=== PATIENT | male | born 1980 | race Caucasian/White ===

== ENCOUNTER 2023-09-25 22:57 | Emergency (ER) | payer OTHER, SELFPAY ==
[2023-09-25 22:58] VITALS: BP 158/86
[2023-09-25 23:25] VITALS: BMI 21.9
[2023-09-25 23:26] LABS: % Eosinophils 4.7 % (0-6); % Immature Granulocytes 0.4 % (0-0.5); % Lymphocytes 37.8 % (20.5-51.1); % Monocytes 6.8 % (1.7-9.3); % Neutrophils 49.3 % (42.2-75.2); Absolute Basophils 0.1 10^3/uL (0-0.2); Absolute Eosinophils 0.3 10^3/uL (0-0.7); Absolute Lymphocytes 2.7 10^3/uL (1.2-3.4); Absolute Monocytes 0.5 10^3/uL (0.1-0.6); Absolute Neutrophils 3.5 10^3/uL (1.4-6.5); Hematocrit 41.3 % (39.0-52.0); Hemoglobin 14.5 g/dL (13.0-18.0); Mean Corp Hgb Conc. 35.1 g/dL (33.0-37.0); Mean Corpuscular Hgb 30.1 pg (27.0-31.0); Mean Corpuscular Volume 85.7 fL (80.0-94.0); Mean Platelet Volume 8.7 fL (7.4-10.4); Nucleated Red Blood Cells % 0 % (-); Platelet Count 300 10^3/uL (130-400); Red Blood Cell Count 4.82 10^6/uL (4.70-6.10); Red Cell Dist. Width 12.4 % (11.5-14.5)
[2023-09-25 23:27] VITALS: BP 124/72
[2023-09-25 23:30] VITALS: BP 130/84
[2023-09-25 23:37] LABS: Urine Albumin Negative (Neg - Trace); Urine Bilirubin Negative (Negative); Urine Character Clear (Clear); Urine Color Yellow; Urine Glucose Negative (Negative); Urine Ketone Negative (Negative); Urine Leukocyte Negative (Negative); Urine Nitrite Negative (Negative); Urine Occult Blood 2+ (Negative); Urine Specific Gravity 1.005 (<1.030); Urine Urobilinogen Negative (Neg - 1+)
[2023-09-25] MEDS: NSS 1000 IV (23:38)
[2023-09-25] MEDS: DILAUDID 0.5 MG IV (23:38)
[2023-09-25 23:40] LABS: ALT (SGPT) 23 U/L (0-50); AST (SGOT) 29 U/L (17-59); Albumin 5.1 g/dl (3.5-5.0); Alkaline Phosphatase 121 U/L (38-126); Blood Urea Nitrogen 13 mg/dl (9-20); Carbon Dioxide 26 mmol/L (22-30); Chloride 102 mmol/L (98-107); Estimated Creatinine Clearance 100 ml/min; Glucose 133 mg/dl (70-99); Potassium 3.9 mmol/L (3.5-5.1); Sodium 136 mmol/L (135-145); Total Bilirubin 0.7 mg/dl (0.2-1.3); Total Protein 8.3 g/dl (6.3-8.2); eGFR > 60.00
[2023-09-25 23:41] VITALS: BP 130/84
[2023-09-26] VITALS (7 sets, daily range): BP systolic 106–137; BP diastolic 59–90
[2023-09-26] MEDS: DILAUDID 0.5 MG IV (00:19)
[2023-09-26 00:38] LABS: Urine Bacteria Few (Negative); Urine Red Blood Cell 80-90 /HPF (0-2); Urine White Cell 0-2 /HPF (0-5)
--- NOTE | 2023-09-26 00:42 | ED.GENMED ---
History of Present Illness
<XAVIER Petit - Last Filed: 09/26/23 06:08>
General
Chief Complaint: Abdominal Pain
Source: patient
Exam Limitations: none
Time Seen by Provider: 09/26/23 00:24
Travel History
Have you had any contact with someone who has COVID-19?: No
Do you have any symptoms of coronavirus? Fever > 100 degrees, chills, cough, shortness of breath, sore throat, loss of taste or smell, muscle aches, or headache?: No
History of Present Illness
History of Present Illness:
This is a 43 yo male with PMH appendectomy presenting for abdominal pain x 2 hours. He states he was sitting down this evening and noticed abrupt 9/10 R sided abdominal pain radiating to his R flank, as well as his R testicle.
He denies history of similar symptoms and denies history of gallstones and kidney stones.
He denies nausea, vomiting, fever, chills, dysuria.
Review of Systems
<XAVIER Petit - Last Filed: 09/26/23 06:08>
Review of Systems
Allergies reviewed?: Yes
Constitutional: Reports no symptoms
EENT: Reports no symptoms
Respiratory: Reports no symptoms
Cardiac: Reports no symptoms
ABD/GI: Reports abdominal pain
: Reports flank pain
Musculoskeletal: Reports no symptoms
Skin: Reports no symptoms
Neurological: Reports no symptoms
Phy Exam
<XAVIER Petit - Last Filed: 09/26/23 06:08>
General Physical Exam
General Presentation: moderate distress
General age: appears stated age
General Skin: warm and dry
General Habitus: normal
General Mental: alert
General Hydration: appears well hydrated
Cardiovascular Exam
Cardiovascular Exam: regular rate/rhythm, no gallop and no murmur
Pulmonary Exam
Pulmonary Exam: lungs clear
Gastrointestinal Exam
Gastrointestinal Exam: soft, no pulsatile mass, non distended and no cva tenderness
Palpation: right upper quadrant: Moderate tenderness
Genitourinary Exam Male
Exam Male: no testicular tenderness
Neurological Exam
Neurological Exam: alert and oriented x3
Psychiatric Exam
Psychiatric Exam: normal mood/affect
Course
<XAVIER Petit - Last Filed: 09/26/23 06:08>
Orders/Labs/Results
Orders:
Orders
09/25/23 23:21
CMP [Comprehensive Metabolic Panel] Urgent
Complete Blood Count/With Diff Urgent
09/25/23 23:22
Urinalysis Urgent
Date Specimen was Collected: 09/25/23
Time Specimen was Collected: 23:02
Urine Microscopic Urgent
Date Specimen was Collected: 09/25/23
Time Specimen was Collected: 23:02
09/25/23 23:34
0.9% Sodium Chloride 1000 ml [Nss] 1,000 ml IV BOLUS
HYDROmorphone [Dilaudid] 0.5 mg IV NOW STA
09/25/23 23:41
Ondansetron Injectable [Zofran] 4 mg IV NOW STA
09/26/23 00:05
CT Abd/pel Without Iv Or Oral Urgent
Reason For Exam: right flank pain
09/26/23 00:08
EKG [Electrocardiogram (*1)] Urgent
Reason for Study: Other
Other Reason for Exam: QT eval
09/26/23 00:09
EKG- Treatment ONCE
09/26/23 00:18
HYDROmorphone [Dilaudid] 0.5 mg .ROUTE .STK-MED ONE
09/26/23 00:19
HYDROmorphone [Dilaudid] 0.5 mg IV NOW STA
09/26/23 00:53
Acetaminophen 1000MG/100Ml [Ofirmev] 1,000 mg in 100 ml IV ONCE
Acetaminophen IV Indication:: ED Narcotic Naive Pt-ONCE
09/26/23 02:48
HYDROmorphone [Dilaudid] 1 mg .ROUTE .STK-MED ONE
09/26/23 02:49
HYDROmorphone [Dilaudid] 1 mg IV NOW STA
09/26/23 02:59
0.9% Sodium Chloride 1000 ml [Nss] 1,000 ml IV BOLUS
Tamsulosin [Flomax] 0.4 mg PO NOW STA
Abnormal Lab Results
09/25/23 09/25/23
23:21 23:22
Glucose 133 H mg/dl
(70-99)
Total Protein 8.3 H g/dl
(6.3-8.2)
Albumin 5.1 H g/dl
(3.5-5.0)
Urine Occult Blood 2+ A
(Negative)
Urine RBC 80-90 A /HPF
(0-2)
Urine Bacteria Few A
(Negative)
09/25/23 23:21
09/25/23 23:21
Vital Signs
Initial and Last Documented VS:
Initial Vital Signs
Temp Pulse Resp BP
98.6 F 98 26 158/86
09/25/23 22:58 09/25/23 22:58 09/25/23 22:58 09/25/23 22:58
Last Documented Vital Signs
Temp Pulse Resp BP Pulse Ox
98.6 F 67 18 125/70 96
09/25/23 22:58 09/26/23 05:50 09/26/23 05:50 09/26/23 05:50 09/26/23 05:50
<Ash Adan, DO - Last Filed: 09/26/23 05:30>
Orders/Labs/Results
Orders:
Orders
09/25/23 23:21
CMP [Comprehensive Metabolic Panel] Urgent
Complete Blood Count/With Diff Urgent
09/25/23 23:22
Urinalysis Urgent
Date Specimen was Collected: 09/25/23
Time Specimen was Collected: 23:02
Urine Microscopic Urgent
Date Specimen was Collected: 09/25/23
Time Specimen was Collected: 23:02
09/25/23 23:34
0.9% Sodium Chloride 1000 ml [Nss] 1,000 ml IV BOLUS
HYDROmorphone [Dilaudid] 0.5 mg IV NOW STA
09/25/23 23:41
Ondansetron Injectable [Zofran] 4 mg IV NOW STA
09/26/23 00:05
CT Abd/pel Without Iv Or Oral Urgent
Reason For Exam: right flank pain
09/26/23 00:08
EKG [Electrocardiogram (*1)] Urgent
Reason for Study: Other
Other Reason for Exam: QT eval
09/26/23 00:09
EKG- Treatment ONCE
09/26/23 00:18
HYDROmorphone [Dilaudid] 0.5 mg .ROUTE .STK-MED ONE
09/26/23 00:19
HYDROmorphone [Dilaudid] 0.5 mg IV NOW STA
09/26/23 00:53
Acetaminophen 1000MG/100Ml [Ofirmev] 1,000 mg in 100 ml IV ONCE
Acetaminophen IV Indication:: ED Narcotic Naive Pt-ONCE
09/26/23 02:48
HYDROmorphone [Dilaudid] 1 mg .ROUTE .STK-MED ONE
09/26/23 02:49
HYDROmorphone [Dilaudid] 1 mg IV NOW STA
09/26/23 02:59
0.9% Sodium Chloride 1000 ml [Nss] 1,000 ml IV BOLUS
Tamsulosin [Flomax] 0.4 mg PO NOW STA
Abnormal Lab Results
09/25/23 09/25/23
23:21 23:22
Glucose 133 H mg/dl
(70-99)
Total Protein 8.3 H g/dl
(6.3-8.2)
Albumin 5.1 H g/dl
(3.5-5.0)
Urine Occult Blood 2+ A
(Negative)
Urine RBC 80-90 A /HPF
(0-2)
Urine Bacteria Few A
(Negative)
09/25/23 23:21
09/25/23 23:21
Vital Signs
Initial and Last Documented VS:
Initial Vital Signs
Temp Pulse Resp BP
98.6 F 98 26 158/86
09/25/23 22:58 09/25/23 22:58 09/25/23 22:58 09/25/23 22:58
Last Documented Vital Signs
Temp Pulse Resp BP Pulse Ox
98.6 F 67 18 125/70 96
09/25/23 22:58 09/26/23 05:50 09/26/23 05:50 09/26/23 05:50 09/26/23 05:50
<XAVIER Petit - Last Filed: 09/26/23 06:08>
MDM/Problems Addressed
Differential Diagnosis Includes:
Renal calculus
Cholecystitis
MDM/Problems Addressed:
Abdominal CT
Urinalysis
CT findings consistent with 3mm stone. Patient has responded well to pain control.
<XAVIER Petit - Last Filed: 09/26/23 06:08>
*Critical Care Note
Total Time (30-74mins, 75-104mins- exclusive of procedures): Not Applicable
ED Attending Note
<XAVIER Petit - Last Filed: 09/26/23 06:08>
-
Portions of this chart may have been created with voice recognition software.� Occasional wrong word or��sound alike� substitutions may have occurred due to the inherent limitations of voice recognition software.
<Ash Adan, DO - Last Filed: 09/26/23 05:30>
ED Attending Note
Patient seen and examined by attending physician: Yes
I performed the substantive portion of visit, reviewed & personally made and approve the management plan that is documented in note by myself or LEYLA.: Yes
ED Attending Note:
Pleasant 43-year-old male presents with right-sided flank abdominal and testicular pain for the last 2 hours. Patient denies previous kidney stone history. He has had an appendectomy in the past. Denies fever, chills, nausea or vomiting. Patient
was seen in conjunction with the PA student. I have reviewed and agree with the history and treatment plan presented. On my independent physical exam, patient is awake, alert, and oriented x3, still in some acute distress despite having 2 doses of
narcotic pain medication. He does have Crohn's colitis so he cannot take NSAIDs.
Despite multiple doses of pain medications his pain is finally under control. It is likely that he passed the kidney stone. He will follow-up with urology.
Discharge Plan
Departure
Patient Disposition: Home (Routine Discharge)
Date of Disposition: 09/26/23
Time of Disposition: 05:27
Patient with high blood pressure during this ER visit?: Yes
Condition: Good
Discharge Problem:
Kidney stone on right side
Instructions: Kidney Stones (DC), How to Strain Your Urine, BLOOD PRESSURE
Prescriptions:
New
oxycodone-acetaminophen [Percocet] 5-325 mg Tablet
1 tab PO Q4HPRN PRN (Reason: pain) Qty: 8 0RF
tamsulosin [Flomax] 0.4 mg Capsule
0.4 mg PO DAILY Qty: 7 0RF
Referrals:
Willie Sanchez MD [Active] -
UNKNOWN - PT DOES,NOT KNOW [Family Provider] -
Activity Restrictions/Additional Instructions:
It was a pleasure meeting you and taking part in your care. We hope for your continued healing and wellness.
Please read discharge instructions in their entirety. However, they are for general education and may not describe your exact diagnosis at discharge. Information on your ER visit and medical conditions were discussed with you along with appropriate
follow up information...
If indicated, please take your medications as instructed and indicated on discharge paperwork.
Please schedule a follow up appointment as directed. Call to schedule an appointment
Please return to the emergency department with ANY change in, persisting, or worsening of symptoms. If any of your symptoms do not improve, or persist, or become more severe within 6-12 hours, please return to the emergency department for further
care.
Please return to the emergency department if you develop a headache, neck pain/stiffness, fever greater than 100.4F, chest pain, shortness of breath, persistent nausea, vomiting, slurred speech, difficulty walking, numbness/tingling, weakness, signs
of infection or any other symptoms that are worrisome to you.
If you have any questions or concerns please do not hesitate to call the Hospital at or E-mail me directly at [email or web address]
Interventions
Interventions:
*Risk Screen - Suicide Last Done: 09/25/23 22:58
*General Assessment Last Done: 09/25/23 23:26
*Neglect/Abuse Screening Last Done: 09/25/23 22:58
ED- Fall Risk Assessment Last Done: 09/25/23 23:27
*ED COVID-19 Vaccine History Last Done: 09/25/23 23:26
*Nursing Disposition Last Done: 09/26/23 05:58
RE-Jovdpm-Yftsbhbfzs Assessment Last Done: 09/26/23 00:13
Discharge Date and Time
Print Language: SPANISH
[2023-09-26] MEDS: OFIRMEV 100 IV (01:08)
[2023-09-26] MEDS: DILAUDID 1 MG IV (02:49)
[2023-09-26] MEDS: FLOMAX 0.400000000000000022 MG PO (03:08)
[2023-09-26] MEDS: NSS 1000 IV (03:10)
== END 2023-09-26 06:13 | disposition home or self-care (01) ==
LOC: EMR 22:57
PROVIDERS: EMERGENCY PHYSICIAN Student in an Organized Health Care Education/Training Program
DX: N20.0 Calculus of kidney (principal); R03.0 Elevated blood-pressure reading, without diagnosis of hypertension; K50.10 Crohn's disease of large intestine without complications; Z88.6 Allergy status to analgesic agent
CPT/HCPCS: 99284; 96374; 96375; 96361 ×2; 96376 ×2; 74176; 80053; 81003; 81015; 85025; 93005

== ENCOUNTER → 2023-11-03 09:15 | Outpatient (REF) | payer OTHER, SELFPAY | LOC: DHSLP 09:15 | PROVIDERS: ATTENDING PHYSICIAN Internal Medicine; FAMILY PHYSICIAN Family Medicine | DX: G47.33 Obstructive sleep apnea (adult) (pediatric) (principal) | CPT/HCPCS: 95810 ==

== ENCOUNTER → 2024-03-14 06:22 | Day surgery (SDC) | payer OTHER, SELFPAY | LOC: GI 06:22 | PROVIDERS: ATTENDING PHYSICIAN Internal Medicine Gastroenterology | DX: K22.89 Other specified disease of esophagus (principal); R13.10 Dysphagia, unspecified; K20.0 Eosinophilic esophagitis | CPT/HCPCS: 43249; 43239; 88305 ==